=== PATIENT | female | born 1965 | race Caucasian/White ===

== ENCOUNTER 2020-09-01 11:47 | Outpatient (CLI) | payer OTHER, SELFPAY ==
--- NOTE | ~2020-09-01 | XR_ITS ---
XR foot RT min 3V DATE: 09/01/2020 12:27 INDICATION: Metatarsal pain. Right foot injury one year ago. TECHNIQUE: 4 views COMPARISON: None FINDINGS: Minimal posterior calcaneal enthesopathy. Osteoarthritis at the first metatarsophalangeal joint and multiple interphalangeal joints. No fracture or dislocation, periosteal reaction or bone destruction is detected. IMPRESSION: Osteoarthritis, particularly at first metatarsophalangeal joint Reviewed, dictated and finalized at location A. SPECIALIST
== END 2020-09-01 11:48 | disposition home or self-care (01) ==
PROVIDERS: PCP Family Medicine; Visit Provider Family Medicine
DX: M19.071 Primary osteoarthritis, right ankle and foot (principal)
CPT/HCPCS: 73630

== ENCOUNTER → 2021-11-27 11:36 | Outpatient (CLI) | payer OTHER, SELFPAY ==
--- NOTE | ~2021-11-27 | XR_ITS ---
XR forearm LT 2V 11/27/2021 11:49 INDICATION: Left arm pain PROCEDURE: 2 views left forearm COMPARISON: No prior studies for comparison. FINDINGS: Fracture, dislocation or subluxation is not identified. The soft tissues appear within norm al limits. No foreign bodies are identified. IMPRESSION: 1: NO ACUTE BONE OR JOINT ABNORMALITY IDENTIFIED. Reviewed, dictated and finalized at location A. NG MACHINE OPERATOR PACKAGE YARNS
== END ==
PROVIDERS: PCP Family Medicine; Visit Provider Family Medicine
DX: M79.632 Pain in left forearm (principal)
CPT/HCPCS: 73090

== ENCOUNTER 2024-11-18 11:25 | Outpatient (CLI) | payer BC, SELFPAY ==
--- NOTE | ~2024-11-18 | XR_ITS ---
Right foot Technique: AP and lateral views were obtained. Clinical History: Pain Findings: No acute fracture or dislocation is seen. There is moderate degenerative change of the firs t metatarsophalangeal joint. Soft tissues are unremarkable. Impression: Moderate degenerative change of the first MTP joint. Reviewed, dictated and finalized at [facility]. GRAVURE PRESS OPERATOR Impression: Moderate degenerative change of the first MTP joint.
--- NOTE | ~2024-11-18 | XR_ITS ---
Left Hand Technique: PA and lateral views were obtained. Clinical History: Pain Findings: No acute fracture or dislocation is seen. There is severe degenerative change of the DIP nasir ints of the third, fourth, and fifth digits. There is mild degenerative change of the second DIP join t.. Soft tissues are unremarkable. Impression: Degenerative change of the DIP joints, as detailed above. Reviewed, dictated and finalized at location M. T PRACTICE INTERN Impression: Degenerative change of the DIP joints, as detailed above.
--- NOTE | ~2024-11-18 | XR_ITS ---
Lumbosacral Spine: AP and lateral views Clinical History: Pain Findings: The normal lordotic curve is maintained. No fracture or subluxation seen. There are mild de generative disc changes in the lumbar spine. There is severe facet arthropathy throughout the lumbar spine. The sacroiliac joints are normally outlined. Impression: Extensive facet arthropathy throughout the lumbar spine. Reviewed, dictated and finalized at location . ITY PERSON Impression: Extensive facet arthropathy throughout the lumbar spine.
--- NOTE | ~2024-11-18 | XR_ITS ---
Left foot Technique: AP and lateral views were obtained. Clinical History: Pain Findings: No acute fracture or dislocation is seen. Osseous alignment is anatomic. There is mild dege nerative change of the first MTP joint. Soft tissues are unremarkable. Impression: Mild degenerative change of the first MTP joint. Reviewed, dictated and finalized at location . ERTY TECHNICIAN Impression: Mild degenerative change of the first MTP joint.
--- NOTE | ~2024-11-18 | XR_ITS ---
EXAMINATION: XR sacroiliac joints min 3V DATE: 11/18/2024 12:11 INDICATION: Joint pain. TECHNIQUE: 3 views of the sacroiliac joints were obtained. COMPARISON: None. FINDINGS: Alignment is normal. No fracture. There is mild osteoarthritis of the sacroiliac joints. IMPRESSION: 1. Mild osteoarthritis of the sacroiliac joints. Reviewed, dictated and finalized at location A. RAFT NAVIGATOR
--- NOTE | ~2024-11-18 | XR_ITS ---
Right Hand Technique: PA and lateral views were obtained. Clinical History: Joint pain Findings: No acute fracture or dislocation is seen. There is severe degenerative change of the DIP nasir ints of the second through fifth fingers.. Soft tissues are unremarkable. Impression: Severe degenerative changes of the DIP joints, as detailed above. Reviewed, dictated and finalized at location . [employer] Impression: Severe degenerative changes of the DIP joints, as detailed above.
--- OUTSIDE RECORDS SUMMARY | 2024-11-18 12:29 | XMS_ITS | Clinical Summary ---
Author Organization [facility] Address [address] [place] [address]. [place] [address] [place] [address] Care Team Providers Care Retail Loss Prevention Investigator Name Role Phone Unavailable Primary Care Provider Unavailabl e Social History Tobacco Use Types Packs/Day Years Used Date Smoking Tobacco: Never Assessed Comments Unknown Sex and Gender Information Value Date Recorded Sex Assigned at Not on file Legal Sex Female 8:16 PM CDT Gender Identity Not on file Sexual Orientation Not on file Plan of Treatment Health Maintenance Due Date Last Done Comments Cervical Cancer Screening Pa p Smear (Age 30 to 64) Every 3 Years 1965 Colorectal Cancer Screening Colonoscopy (10 Years) 1965 Annual Physical 1968 Hepatitis C 1983 DTaP, Tdap and Td Vaccines ( 1 - Tdap) 1984 Cervical Cancer Screening Pa p with HPV Testing (Age 30 to 64) Every 5 Years 1995 Cervical Cancer Screening with HPV 1995 Mammogram Screening 2005 Zoster Vaccines (1 of 2) 2015 COVID-19 Vaccine (2023-2 5 season) 2024 Influenza Adult (#1) 2024 Meningococcal B Vaccine Aged Out No l onger eligible based on patient's age to complete this topic Meningococcal Vaccine Aged Out No johnathan jean eligible based on patient's age to complete this topic Pneumococcal Vaccine: Pediat rics (0 to 5 Years) and At-Risk Patients (6 to 64 Years) Aged Out No longer eligible b ased on patient's age to complete this topic RSV Immunizations Under 20 Months Aged Out No longer eligible based on patient's age to complete this topic
--- OUTSIDE RECORDS SUMMARY | 2024-11-18 12:29 | XMS_ITS | Referral Summary ---
Author Organization [facility] Medical Office Building [address] [place] [phone] Care Team Providers Care Autobody Technician Name Role Phone Alejandro Robin MD Primary Care Provider [phone] Encounters Date Type Department Care Team Description 11/13/2024 9:45 AM LINE OUT WORKER - 11/13/2024 11:59 PM LINE OUT WORKER Hospital Encounter [facility] [address] [place] [phone] Discharge Disposition: Discharge to home or self care 11/11/2024 10:30 AM LINE OUT WORKER Office Visit [facility] [address] [place] [phone] Sameer Raphael PA Polyarthralgia (Primary Dx); Sicca, unspecified type (HCC); Chronic fatigue from Last 3 Months Allergies Active Allergy Reactions Criticality Noted Date Comments Penicillins Hives Medium 08/29/2012 Hives Medications lisinopriL (PRINIVIL,ZESTRI L) 20 mg tablet Take 1 tablet (20 mg total) by mouth daily 09/13/2024 Active rosuvastatin (CRESTOR) 10 mg tablet Take 1 tablet (10 mg total) by mouth daily 09/13/2024 Active Active Problems Problem Noted Date Diagnosed Date Polyarthralgia 11/11/2024 Overview (11/18/2024): Avise 11/12/2024: Positive ALEJANDRA by Sweetie only, but otherwise negative US right hand/wrist (11/13/24): Dorsal wrist: Grade 2 power doppler. Radial scaphoid joint: Grade 1 power doppler. 2nd and 3rd PIP joints: Mild synovial thickening. Additional views of the DIP joints reveal: The volar 2nd DIP joint reveals marked spurring with no effusion and grade 1 power doppler. The volar 3rd DIP joint reveals marked spurring with no effusion and grade 1 power doppler. The volar 4th DIP joint reveals marked spurring with significant joint space loss with no effusion and negative power doppler. The volar 5th DIP joint reveals marked spurring with significant joint space loss with no effusion and negative power doppler. Assessment & Plan (11/11/2024 12:41 PM LINE OUT WORKER): Melanie huber is a pleasant 59 yoF presenting with chronic arthralgias affecting the bilateral feet and hands, as above. Denies prolonged a.m. stiffness. Hand symptoms are improved with use, although feet symptoms are exacerbated with activities. Otherwise, has intermittent neuropathic pains in the feet. Notes occasional lower back pain with morning stiffness for up to 30 minutes and improves with activities. She also describes significant dry eyes along with occasional dry mouth, canker sores, and rash on the neck, as shown above, all of which is of unknown significance. Has scattered tender joints with profound Qing's/Heberden's nodes on exam. Family history of mother with psoriasis/psoriatic arthritis and sister with ankylosing spondylitis. At this time, suspicion is higher for degenerative arthritis in the cause for the majority of her symptoms. Nonetheless, and inflammatory arthritis, including psoriatic arthritis, certainly does remain possible. Will evaluate further with appropriate serologies, radiographs, right hand/wrist ultrasound, including D IP joints. Follow-up 2 weeks. Sooner if needed. Seen with Dr. Narvaez. HTN (hypertension) 11/11/2024 Other hyperlipidemia 11/11/2024 Anemia 11/11/2024 GERD (gastroesophageal reflux disease) Depression 11/11/2024 Sicca 11/11/2024 Assessment & Plan (11/11/2024 12:41 PM LINE OUT WORKER): Primary complaint has been significant dry eyes with occasional dry mouth. Has tried OTC and prescription drops per Ophthalmology without benefit. Will check Avise panel, including SSA/SSB antibodies Social History Tobacco Use Types Packs/Day Years Used Date Smoking Tobacco: Never Assessed Comments No Sex and Gender Information Value Date Recorded Sex Assigned at Not on file Legal Sex Female 7:04 AM LINE OUT WORKER Gender Identity Not on file Sexual Orientation Not on file Last Filed Vital Signs Vital Sign Reading Time Taken Comments Blood Pressure 136/84 11/11/2024 9:57 AM LINE OUT WORKER Pulse 91 11/11/2024 9:57 AM LINE OUT WORKER Temperature - - Respiratory Rate - - Oxygen Saturation 96% 11/11/2024 9:57 AM LINE OUT WORKER Inhaled Oxygen Concentration - - Weight 84.8 kg (187 lb) 11/11/2024 9:57 AM LINE OUT WORKER Height 170.2 cm (5' 7 ) 11/11/2024 9:57 AM LINE OUT WORKER Body Mass Index 29.29 11/11/2024 9:57 AM LINE OUT WORKER Plan of Treatment Not on file Procedures Procedure Name Priority Date/Time Associated Diagnosis Comments CBC WITH AUTO DIFFERENTIAL Routine 11/11/2024 11:17 AM LINE OUT WORKER Polyarthralgia Chronic fatigue COMPREHENSIVE METABOLIC PANEL Routine 11/11/2024 11:17 AM LINE OUT WORKER Polyarthralgia Chronic fatigue CRP (ACUTE PHASE) Routine 11/11/2024 11: 17 AM LINE OUT WORKER Polyarthralgia ERYTHROCYTE SEDIMENTATION RATE Routine 11/11/2024 11:17 AM LINE OUT WORKER Polyarthralgia MISCELLANEOUS LAB TEST Routine 11/11/2024 9:41 AM LINE OUT WORKER Polyarthralgia SCREENING MAMMOGRAM BILATERAL W REX Schedule Routine, Read Routine (OP Routine) 01/03/2024 12:47 PM CDT Screening mammogram, encounter for from Last 3 Months or Most Recently Relevant to Health Maintenance Results * CBC with auto differential (11/11/2024 11:17 AM LINE OUT WORKER) WBC 7.3 3.8 - 10.8 Thousand/u L [facility] RBC, POC 4.97 3.80 - 5.10 Million/uL [facility] Hgb 14.6 11.7 - 15.5 g/dL [facility] Hct 44.6 35.0 - 45.0 % [facility] MCV 89.7 80.0 - 100.0 fL [facility] MCH 29.4 27.0 - 33.0 pg [facility] MCHC 32.7 32.0 - 36.0 g/dL [facility] Comment: For adults, a slight decrease in the calculated MCHC value (in the range of 30 to 32 g/dL) is most likely not clinically significant; however, it should be interpreted with caution in correlation with other red cell parameters and the patient's clinical condition. Rdw 12.6 11.0 - 15.0 % [facility] Platelets 211 140 - 400 Thousand/u L [facility] MPV 10.5 7.5 - 12.5 fL [facility] Neutrophils, abs 4,855 1,500 - 7,800 cells/uL [facility] Lymphocytes, abs 1,891 850 - 3,900 cells/uL [facility] Monocyte abs 431 200 - 950 cells/uL [facility] Eosinophils, abs 80 15 - 500 cells/uL [facility] Basophils, abs 44 0 - 200 cells/uL [facility] Neutrophils 66.5 % [facility] Lymphocyte pct 25.9 % [facility] Monocytes 5.9 % [facility] Eosinophils 1.1 % [facility] Basophils 0.6 % [facility] Blood 11/11/2024 11:1 7 AM LINE OUT WORKER 11/11/2024 11:17 AM LINE OUT WORKER Sameer EVANS LAB BLOOD ORDERABLES Fi nal Result [facility] [address] [place] [phone] * Erythrocyte sedimentation rate (11/11/2024 11:17 AM LINE OUT WORKER) Erythrocyte sedimentation rate 2 < OR = 30 mm/h [facility] Blood 11/11/2024 11:1 7 AM LINE OUT WORKER 11/11/2024 11:17 AM LINE OUT WORKER Sameer EVANS LAB BLOOD ORDERABLES Fi nal Result Performing Organization Address City/[facility]/ZIP Co de Phone Number [facility]ST [facility] [address] [facility] [place] [address] * CRP (acute phase) (11/11/2024 11:17 AM LINE OUT WORKER) Pathologist [facility] C-RP <3.0 <8.0 mg/L [facility] Blood 11/11/2024 11:1 7 AM LINE OUT WORKER 11/11/2024 11:17 AM LINE OUT WORKER Sameer EVANS LAB BLOOD ORDERABLES Fi nal Result Performing Organization Address [facility] de Phone Number [facility] [address] [facility] [place] [address] * (ABNORMAL) Comprehensive metabolic panel (11/11/2024 11:17 AM LINE OUT WORKER) Pathologist [facility] Glucose 100(H) 65 - 99 mg/dL [facility] Comment: ? Fasting reference interval For someone without known diabetes, a glucose value between 100 and 125 mg/dL is consistent with prediabetes and should be confirmed with a follow-up test. BUN 19 7 - 25 mg/dL [facility] Creatinine 0.83 0.50 - 1.03 mg/dL [facility] eGFR 81 > OR = 60 mL/min/1.7 3m2 [facility] BUN/creat ratio SEE NOTE: 6 - 22 (calc) [facility] Comment: ?? Not Reported: BUN and Creatinine are within ?? reference range. ? Sodium 140 135 - 146 mmol/L [facility] Potassium, pl 4.0 3.5 - 5.3 mmol/L [facility] Chloride 102 98 - 110 mmol/L [facility] CO2 30 20 - 32 mmol/L [facility] Calcium 9.6 8.6 - 10.4 mg/dL [facility] Protein, sr 7.2 6.1 - 8.1 g/dL [facility] Albumin 4.7 3.6 - 5.1 g/dL [facility] GLOBULIN 2.5 1.9 - 3.7 g/dL (calc) [facility] Alb/glob ratio 1.9 1.0 - 2.5 (calc) [facility] Bilirubin, total 0.5 0.2 - 1.2 mg/dL [facility] Alk phos 105 37 - 153 U/L [facility] AST 26 10 - 35 U/L [facility] ALT (SGPT) 23 6 - 29 U/L [facility] Blood 11/11/2024 11:1 7 AM LINE OUT WORKER 11/11/2024 11:17 AM LINE OUT WORKER Sameer EVANS LAB BLOOD ORDERABLES Fi nal Result Performing Organization Address City/[facility]/ZIP Co de Phone Number [facility] [address] [place] [address] * AVISE - Miscellaneous Test (11/11/2024 9:41 AM LINE OUT WORKER) Miscellaneous Sameer EVANS LAB BLOOD ORDERABLES Fi nal Result EXTERNAL LAB * Screening Mammogram Bilateral W Rex (01/03/2024 12:47 PM CDT) Anatomical Region Laterality Modality Breast Bilateral Mammography Impressions 01/03/2024 12:54 PM CDT BI-RADS?? ATLAS category (overall): 2 - Benign There is no mammographic evidence of malignancy. A 1 year screening mammogram is recommended. The patient has been or will be contacted. We recommend annual screening mammography for women at average risk of breast cancer beginning at age 40, based on guidelines of the [employer] (ACR Practice Parameter for the Performance of Screening and Diagnostic Mammography) and [employer]. For women with and elevated risk of breast cancer, please refer to the ACR Practice Parameter for specific screening recommendations. The patient will be entered into a reminder system with a target due date of 1 year for her next screening exam. Narrative 01/03/2024 12:54 PM CDT Screening Mammogram Bilateral W Rex: 01/03/24 The study was acquired using full field digital technology and interpreted from soft copy. 2D digital mammographic views, as well as 3D digital tomosynthesis were performed in the CC and MLO projections. CLINICAL: ??Screening mammogram, encounter for. ??No relevant medical history has been documented for this patient. ??No known family history of breast cancer. COMPARISONS: 10/31/2022 Screening Mammogram Bilateral W Rex 07/02/2021 Screening Mammogram Bilateral W Rex 01/09/2020 Screening Mammogram Bilateral W Rex 12/13/2018 Screening Mammogram Bilateral W Rex 11/09/2017 MAMMOGRAPHY, TOMOGRAPHY, BILATERAL 11/23/2016 US Breast Limited 10/14/2016 Screening Mammogram W Rex 09/29/2015 Screening Mammogram W Rex 09/26/2014 Screening Mammogram BREAST TISSUE: The breasts are heterogeneously dense, which may obscure small masses. FINDINGS: There are stable postoperative findings in both breasts. No suspicious masses, suspicious calcifications, or other suspicious findings are seen within either breast. There has been no suspicious change. us Self Screening Mammogram IMG MAMMO PROCEDURES Fi nal Result from Last 3 Months or Most Recently Relevant to Health Maintenance Insurance [employer] SIG [id number] [employer] SIG [id number] [place] Care Teams Autobody Technician Relationship Specialty Start Date End Date Alejandro Robin MD [address] [place] [address] PCP - General 10/26/17
--- OUTSIDE RECORDS SUMMARY | 2024-11-18 12:29 | XMS_ITS | Clinical Summary ---
Author Organization [facility] Medical Office Building [address] [place] [phone] Care Team Providers Care Dynamic Balancer Name Role Phone Alejandro Robin MD Primary Care Provider [phone] Allergies Active Allergy Reactions Criticality Noted Date [...] doppler. Assessment & Plan (11/11/2024 12:41 PM BRIDGE CONTRACTOR): Melanie huber is a pleasant 59 yoF [...] 11/11/2024 Assessment & Plan (11/11/2024 12:41 PM BRIDGE CONTRACTOR): Primary complaint has been significant dry eyes with occasional dry mouth. Has tried OTC and prescription drops per Ophthalmology without benefit. Will check Avise panel, including SSA/SSB antibodies Encounters Date Type Department Care Team Description 11/13/2024 9:45 AM BRIDGE CONTRACTOR - 11/13/2024 11:59 PM BRIDGE CONTRACTOR Hospital Encounter [facility] [address] [place] [phone] Discharge Disposition: Discharge to home or self care 11/11/2024 10:30 AM BRIDGE CONTRACTOR Office Visit [facility] [address] [place] [phone] Sameer Raphael PA Polyarthralgia (Primary Dx); Sicca, unspecified type (HCC); Chronic fatigue from Last 3 Months Surgical History Surgery Date Site/Laterality Comments BREAST BIOPSY Right BREAST BIOPSY Left BREAST CYST ASPIRATION Left TONSILLECTOMY SECTION x2 Social History Tobacco Use Types Packs/Day Years Used Date Smoking Tobacco: Never Assessed Comments No Sex and Gender Information Value Date Recorded Sex Assigned at Not on file Legal Sex Female 7:04 AM BRIDGE CONTRACTOR Gender Identity Not on file Sexual Orientation Not on file Obstetrics History Para Term AB IAB SAB Ectopic Multiple Livin g Live Births 5 5 5 Date Outcome GA Total Labor Labor/2nd/3rd Weight Sex Type Anes PTL Olga A1 A5 Name Clin Term Term Term Term Term Last Filed Vital Signs Vital Sign Reading Time Taken Comments Blood Pressure 136/84 11/11/2024 9:57 AM BRIDGE CONTRACTOR Pulse 91 11/11/2024 9:57 AM BRIDGE CONTRACTOR Temperature - - Respiratory Rate - - Oxygen Saturation 96% 11/11/2024 9:57 AM BRIDGE CONTRACTOR Inhaled Oxygen Concentration - - Weight 84.8 kg (187 lb) 11/11/2024 9:57 AM BRIDGE CONTRACTOR Height 170.2 cm (5' 7 ) 11/11/2024 9:57 AM BRIDGE CONTRACTOR Body Mass Index 29.29 11/11/2024 9:57 AM BRIDGE CONTRACTOR Plan of Treatment Health Maintenance Due Date Last Done Comments Cervical Cancer Screening 1965 Colon Cancer Screening-Colonoscopy 1965 Depression Screening 1965 Hepatitis C Screening 1965 Hepatitis B Screening 1983 Regular Well Visit/Exam 18-64 1983 Zoster Vaccine (1 of 2) 2015 Covid-19 Vaccine ( season) 2024 04/06/2021, 03/09/2021 Influenza Vaccine (#1) 2024 , 08/27/2018, 07/25/2017, Additional history exists Breast Cancer Screening-Mammogram 01/02/2025 01/03/2024, 10/31/2022, 07/02/2021, Additional history exists DTaP/Tdap/Td Vaccine (2 - Td or Tdap) 05/09/2025 05/09/2015 Pneumococcal vaccine <65 Aged Out No longer eligible based on patient's age to complete this topic Procedures Procedure Name Priority Date/Time Associated Diagnosis Comments CBC WITH AUTO DIFFERENTIAL Routine 11/11/2024 11:17 AM BRIDGE CONTRACTOR Polyarthralgia Chronic fatigue COMPREHENSIVE METABOLIC PANEL Routine 11/11/2024 11:17 AM BRIDGE CONTRACTOR Polyarthralgia Chronic fatigue CRP (ACUTE PHASE) Routine 11/11/2024 11: 17 AM BRIDGE CONTRACTOR Polyarthralgia ERYTHROCYTE SEDIMENTATION RATE Routine 11/11/2024 11:17 AM BRIDGE CONTRACTOR Polyarthralgia MISCELLANEOUS LAB TEST Routine 11/11/2024 9:41 AM BRIDGE CONTRACTOR Polyarthralgia SCREENING MAMMOGRAM BILATERAL W REX Schedule Routine, Read Routine (OP Routine) 01/03/2024 12:47 PM CDT Screening mammogram, encounter for from Last 3 Months or Most Recently Relevant to Health Maintenance Results * CBC with auto differential (11/11/2024 11:17 AM BRIDGE CONTRACTOR) WBC 7.3 3.8 - 10.8 Thousand/u L [facility] Blood 11/11/2024 11:1 7 AM BRIDGE CONTRACTOR 11/11/2024 11:17 AM BRIDGE CONTRACTOR Sameer EVANS LAB BLOOD ORDERABLES Fi nal Result Performing Organization Address [facility] Co de Phone Number [facility] [address] [place] [address] * Erythrocyte sedimentation rate (11/11/2024 11:17 AM BRIDGE CONTRACTOR) Erythrocyte sedimentation rate 2 < OR = 30 mm/h [facility] Blood 11/11/2024 11:1 7 AM BRIDGE CONTRACTOR 11/11/2024 11:17 AM BRIDGE CONTRACTOR Sameer EVANS LAB BLOOD ORDERABLES Fi nal Result Performing Organization Address [facility] Co de Phone Number [facility] [address] [place] [address] * CRP (acute phase) (11/11/2024 11:17 AM BRIDGE CONTRACTOR) C-RP <3.0 <8.0 mg/L [facility] Blood 11/11/2024 11:1 7 AM BRIDGE CONTRACTOR 11/11/2024 11:17 AM BRIDGE CONTRACTOR Sameer EVANS LAB BLOOD ORDERABLES Fi nal Result Performing Organization Address City/[facility] Co de Phone Number [facility] [address] [place] [address] * (ABNORMAL) Comprehensive metabolic panel (11/11/2024 11:17 AM BRIDGE CONTRACTOR) [facility] Glucose 100(H) 65 - 99 mg/dL [facility] BUN/creat ratio SEE NOTE: 6 - (calc) [facility] Comment: ?? Not [...] [facility] Blood 11/11/2024 11:1 7 AM BRIDGE CONTRACTOR 11/11/2024 11:17 AM BRIDGE CONTRACTOR Sameer EVANS LAB BLOOD ORDERABLES Fi nal Result [facility] [address] [place] [phone] * AVISE - Miscellaneous Test (11/11/2024 9:41 AM BRIDGE CONTRACTOR) Miscellaneous Sameer Raymundo EVANS LAB BLOOD ORDERABLES Fi nal Result [...] age 40, based on guidelines of the [employer] (ACR Practice Parameter for the Performance of Screening and Diagnostic Mammography) and [employer]. For women [...] Most Recently Relevant to Health Maintenance Insurance [employer] SIG [id number] [employer] SIG [id number] [place] Care Teams Dynamic Balancer Relationship Specialty Start Date End Date Alejandro Robin MD [address] [place] [address] [place] [id number] PCP - General 10/26/17
== END 2024-11-18 11:26 | disposition home or self-care (01) ==
PROVIDERS: PCP Family Medicine; Visit Provider Physician Assistant
DX: M25.50 Pain in unspecified joint (principal); M46.1 Sacroiliitis, not elsewhere classified; M53.3 Sacrococcygeal disorders, not elsewhere classified
CPT/HCPCS: 72100; 72202; 73120; 73620